=== PATIENT | female | born 1980 | race Asian ===

== ENCOUNTER 2016-08-08 09:01 | Day surgery (SDC) | payer BC ==
--- NOTE | 2016-08-06 17:26 | PREOPHP ---
DATE OF ADMISSION: 08/08/2016 This is the preoperative check list by Ludin Mckeon. SURGEON: FLAQUITO PA MD. FACILITY: [facility]. DATE OF SURGERY: 08/08/2016. CHIEF COMPLAINT: Preop. HISTORY OF THE PRESENT ILLNESS: A 35-year-old female presents for a medical clearance for surgery w juan Sanford on 08/08/2016 at [facility]. MEDICATIONS: Voltaren 25 mg. ALLERGIES: NO KNOWN DRUG ALLERGIES. REVIEW OF SYSTEMS: HEENT: Denies brain injury, head trauma, loss of consciousness, frequent headaches or ____ issues. CARDIOVASCULAR : Denies any chest pain, palpitations, ankle edema, exertional or shortness of breat h. Denies claudications. GASTROINTESTINAL: No concerns about abdominal pain, vomiting or diarrhea or ongoing constipation. GENERAL: No concerns about fatigue, weight loss, appetite, sleep patterns or general health. NEUROLOGICAL: Denies chronic headaches, dizziness, numbness, tingling, weakness or loss of motion. PSYCHIATRIC: No concerns about excessive anxiety, emotional lability or depression. PHYSICAL EXAMINATION: VITAL SIGNS: Heart rate 82, blood pressure systolic 111 and diastolic 72, temperature 98.6. GENERAL: Well Developed, well-nourished female in no acute distress. HEENT: Normocephalic and atraumatic. Extraocular movements are intact. PERRLA. Tympanic membrane s normal. Nasal patches clear. Sinuses nontender. Oral cavity benign with moist mucosa. NECK: Supple without thyromegaly, masses or significant lymphadenopathy. No bruits, no JVD. CHEST: Symmetrical, no retractions. LUNGS: Normal respiratory effort in all aparicio. Clear to auscultation, respirations regular. HEART: Regular rate and rhythm. ABDOMEN: Soft and nontender and nondistended, no hepatosplenomegaly and no masses. BACK: Nontender. Back and spine showed no scoliosis. Normal range of motion. SKIN: Normal turgor, no rashes, lesions or unusual pigmentation or nail or hair abnormalities. NEUROLOGICAL: Normal. PLAN: At this time, the patient is being admitted to [facility] per Dr. Buck fraire due to a hip surgery. The patient has been evaluated and treated by Dr. Buck Sanford for this and s he has agreed to undergo a surgical procedure. This patient is cleared for surgery and I have attac hed other labs, UA, EKG and chest x-ray. Dictated By: GENERIC AUTHOR for FLAQUITO GORE/SAY Conf#: [id number] DID#: [id number]
[~2016-08-08] VITALS: Ht 170.2 cm; Wt 80.0 kg
[2016-08-08] VITALS (13 sets, daily range): BP systolic 114–128; BP diastolic 62–84; PULSE 72–92; RESP 13–28; Ht 170.2 cm; Wt 80.0 kg
[~2016-08-08 09:01] MED LIST: DEXAMETHASONE 4 MG/ML 1 ML INJ ONE; oxyCODONE (CR) 10 MG TAB [oxyCONTIN] PO ONE
[2016-08-08] MEDS ORDERED: BUPIVACAINE 0.5% (SDV) 30 ML, morphine SULFATE (PF) 8 MG, EPINEPHrine 0.3 MG, KETOROLAC... IRR SCH ×7 (10:30)
[2016-08-08] MEDS ORDERED: traMADol 50 MG TAB PO ONE (11:00)
[2016-08-08] MEDS ORDERED: DEXAMETHASONE 1 MG TAB PO ONE (11:00)
[2016-08-08] MEDS ORDERED: GABAPENTIN 300 MG CAP PO ONE (11:00)
[2016-08-08] MEDS ORDERED: oxyCODONE (CR) 10 MG TAB [oxyCONTIN] PO ONE (11:00)
[2016-08-08] MEDS ORDERED: MIDAZOLAM 1 MG/ML 2 ML INJ ONE (11:07)
[2016-08-08] MEDS ORDERED: NEOSTIGMINE 3 MG/3 ML SYRINGE ONE (11:07)
[2016-08-08] MEDS ORDERED: FENTAnyl 50 MCG/ML VIAL ONE (11:07)
[2016-08-08] MEDS ORDERED: PROPOFOL 20 ML ONE (11:07)
[2016-08-08] MEDS ORDERED: LIDOCAINE 2% (SDV) 5 ML INJ ONE (11:07)
[2016-08-08] MEDS ORDERED: ROCURONIUM 50 MG INJ ONE (11:07)
[2016-08-08] MEDS ORDERED: GLYCOPYRROLATE 0.4 MG INJ ONE (11:07)
[2016-08-08] MEDS ORDERED: HYDROmorphONE (0.2 MG/ML) 10ML SYG IV PRN ×3 (11:30)
[2016-08-08] MEDS ORDERED: OXYCODONE/ACETAMINOPHEN (5/325) TAB PO PRN ×2 (11:30)
[2016-08-08] MEDS ORDERED: morphine (1 MG/ML) 10ML SYRINGE IV PRN ×3 (11:30)
[2016-08-08] MEDS ORDERED: ATROPINE 1 MG/10 ML SYRINGE IV PRN (11:30)
[2016-08-08] MEDS ORDERED: LABETALOL HCL 20MG INJ IV PRN (11:30)
[2016-08-08] MEDS ORDERED: MIDAZOLAM 1 MG/ML 2 ML INJ IV PRN (11:30)
[2016-08-08] MEDS ORDERED: hydrALAzine 20 MG INJ IV PRN (11:30)
[2016-08-08] MEDS ORDERED: ONDANSETRON 4 MG INJ IV PRN (11:30)
[2016-08-08] MEDS ORDERED: EPHEDrine SULFATE 50 MG/5 ML SYG IV PRN (11:30)
[2016-08-08] MEDS ORDERED: FENTAnyl 50 MCG/ML VIAL IV PRN ×2 (11:30)
[2016-08-08] MEDS ORDERED: DIPHENHYDRAMINE 50 MG INJ IV PRN (11:30)
[2016-08-08] MEDS ORDERED: MEPERIDINE 25 MG INJ IV PRN (11:30)
--- NOTE | 2016-08-08 11:33 | HPN ---
Date/Time of Note Date/Time of Note DATE: 08/08/16 TIME: 11:33 Interval H&P Admission Note Pt. seen H&P reviewed: No system changes FLAQUITO PA MD Aug 08, 2016 11:33
[2016-08-08] MEDS ORDERED: BUPIVACAINE 0.5%/EPI (SDV) 30 ML INJ ONE (11:37)
[2016-08-08] MEDS ORDERED: CELE100C PO (11:40)
[2016-08-08] MEDS ORDERED: LEVO125T75 PO (11:40)
[2016-08-08] MEDS ORDERED: ESCI5SOL PO (11:40)
[2016-08-08] MEDS ORDERED: AMIT25TA9 PO (11:40)
[2016-08-08] MEDS ORDERED: GABA300S PO (11:40)
[2016-08-08] MEDS ORDERED: MONT10TA21 PO (11:40)
[2016-08-08] MEDS ORDERED: APRE30TA2 PO (11:40)
[2016-08-08] MEDS ORDERED: ZOF8 PO (11:40)
[2016-08-08] MEDS ORDERED: TRAM50TA2 PO (11:40)
--- NOTE | 2016-08-08 13:20 | PDOCDIS ---
Discharge Instructions DIAGNOSIS Discharge Diagnosis: Hip labral tear CONDITION Patient Condition: Good HOME CARE INSTRUCTIONS: Diet Instructions: Regular ACTIVITY: Activity Restrictions: No Restrictions Slowly Increase Activity Keep Limb Elevated Bathing Restrictions: Shower FOLLOW UP/APPOINTMENTS Appointments Two weeks SCHOOL/WORK RELEASE May return to School/Work with: With Restrictions School/Work Release Comment: Foot flat weight bearing left lower extremity for four weeks. NO rotation FLAQUITO PA MD Aug 08, 2016 13:20
[2016-08-08] MEDS ORDERED: ONDANSETRON 4 MG INJ ONE (13:24)
--- NOTE | 2016-08-08 14:04 | OPR ---
DATE OF OPERATION: 08/08/2016 SURGEON: Flaquito Mclain MD NEUROLOGY STROKE PHYSICIAN: Leo Heredia PA-C PREOPERATIVE DIAGNOSIS: Left hip labral tear. POSTOPERATIVE DIAGNOSES 1. Left hip labral tear. 2. Left hip cam impingement. OPERATION PERFORMED 1. Left hip arthroscopic labral repair with capsular closure. 2. Left hip arthroscopic femoral neck resection. Global Product Manager surgeon, Leo Heredia PA-C, was asked to be present at my request as a result of the complexity associated with this procedure, including positioning of the extremity, manipulation and protection of the neurovascular structures. In addition, the use of the 70-degree arthroscope is s ignificantly more complex than the standard arthroscope. In my opinion, the assistance offered by a surgical scrub technologist is insufficient and Mr. Heredia should be compensated for his time. PROCEDURE IN DETAIL: Following administration of general endotracheal anesthesia, the patient was p laced in supine position. The area was locally infiltrated with ropivacaine solution with 5 mg of D uramorph. Sterile prep and drape was then undertaken after the bilateral lower extremities were placed in the Pizarro-Nephew traction device. Using fluoroscopic and endoscopic guidance, anterior and anterolatera l portals were then established for diagnostic arthroscopy. Examination revealed a labral detachment anterolaterally and an arc from about the 10 o'clock positi on posteriorly to the 3 o'clock position with significant peripheral inflammation. The chondrolabra l junction was intact with some mild softening and a positive wave sign. There was significant syno vitis in the femoral notch. The femoral cartilage appeared normal. Sublabral recess was then cleared of soft tissue. After the capsulotomy was performed. The lateral aspect was then addressed first. An anchor was placed laterally, suture was passed around labrum. The suture was incorporated into a 2.8 mm Pizarro and Nephew anchor. The anchor was impacted and the sutures were advanced. A solid repair laterally was obtained. The sutures were left in place. The anterior anchor was then placed again penetrating through the labrum using a 2.8 mm SpeedLock an chor and the sutures were then left in place. The leg was flexed, the peripheral compartment separa tely entered. A Cam lesion was then delineated. A significant bump was noted anterolaterally from about the 11 o'clock position posteriorly to the 4 o'clock position. A femoral neck resection was t hen undertaken with a resection of the bony impingement from about 10 to the 4 o'clock position with a proximal distal dimension of about 20 mm and a depth of 7-8 mm. Good decompression was confirmed endoscopically as well as fluoroscopically. By visualizing through the anterior portal, the lateral sutures were then passed in a mattress fashi on through the capsule and a sliding locking knot was then used to close the capsule laterally. The arthroscope was then placed laterally and the anterior sutures were then passed similarly in a m attress fashion through the anterior capsule. Sliding locking knots were then used and a watertight closure of the anterior capsule was obtained. The joint was irrigated. Portals closed using 4-0 M onocryl sutures, Steri-Strips, sterile dressing. The patient was then [facility], having tolerated the procedure well. Dictated By: FLAQUITO RIOS/SAY Conf#: [id number] DID#: [id number]
--- NOTE | 2016-08-08 16:09 | RADRPT ---
PROCEDURE: Intraoperative imaging of the left hip with fluoroscopy. CLINICAL INDICATION: Left hip pain. Intraoperative. TECHNIQUE: 3 images of the left hip were obtained in the operating room with an image intensifier. No radiologist was in attendance. 14.4 seconds of fluoroscopy time was used. COMPARISON: No prior study is available for comparison. FINDINGS: Images demonstrate surgical instruments overlying the left hip. IMPRESSION: 1. Satisfactory intraoperative imaging of the left hip. RPTAT: QQ .Yoni Zapata MD, MD Date Time Electronically viewed and signed by .Yoni Zapata MD, MD on 08/08/2016 16:08 .R/
== END 2016-08-08 15:40 | disposition home or self-care (01) ==
LOC: SDS 09:01
PROVIDERS: ATTEND Orthopaedic Surgery
DX: S73.192D Other sprain of left hip, subsequent encounter (principal); X58.XXXD Exposure to other specified factors, subsequent encounter; M25.852 Other specified joint disorders, left hip
CPT/HCPCS: 29914; 29916; 73530; 84703; J0171; J0735; J1170; J1885; J2250; J2274; J2405; J2710; J3010; J3370; J1100